=== PATIENT | female | born 1995 | race Caucasian/White ===

== ENCOUNTER 2017-02-16 09:52 | Emergency (ER) | payer BC ==
[2017-02-16 11:32] VITALS: BP 116/65
--- NOTE | 2017-02-16 11:47 | UC ---
FLU HPI - HPI Summary HPI Summary: 21 female presents with complaints of fever, body aches, dry cough and sore throat that began yesterday 02/15/17. Patient denies ear pain, diarrhea, nausea and vomiting. Admits to exposure to flu, has not had flu shot. Sore throat is aggravated by swallowing. Denies chest pain, difficulty breathing and SOB. Has not taken any medications. - History of Current Complaint Chief Complaint: UCGeneralIllness Stated Complaint: FEVER/ST Time Seen by Provider: 02/16/17 11:28 Hx Obtained From: Patient Hx Last Menstrual Period: 02/13/17 ?: No Onset/Duration: Sudden Onset Severity Currently: Moderate Severity Initially: Moderate Pain Intensity: 5 Pain Scale Used: 0-10 Numeric Associated Signs & Symptoms: Positive: Fever, Myalgia, Cough, Sore Throat, Nasal Congestion - Allergy/Home Medications Allergies/Adverse Reactions: Allergies Allergy/AdvReac Type Severity Reaction Status Date / Time No Known Allergies Allergy Verified 02/16/17 11:29 PMH/Surg Hx/FS Hx/Imm Hx Endocrine History Of: Denies: Diabetes Cardiovascular History Of: Denies: Hypertension Respiratory History Of: Denies: Asthma - Surgical History Surgical History: Yes Surgery Procedure, Year, and Place: wisdom teeth extraction 2016 - Family History Known Family History: Positive: None - Social History Alcohol Use: Rare Substance Use Type: Marijuana Substance Use Comment - Amount & Last Used: 3 times daily Smoking Status (MU): Never Smoked Tobacco Amount Used/How Often: 3-4 cigarettes daily Length of Time of Smoking/Using Tobacco: 2 yrs Have You Smoked in the Last Year: No Household Exposure Type: Cigarettes - Immunization History Most Recent Influenza Vaccination: not sure Review of Systems Constitutional: Fever, Chills Skin: Negative Eyes: Negative ENT: Sore Throat, Nasal Discharge Respiratory: Cough Cardiovascular: Negative Gastrointestinal: Negative Musculoskeletal: Myalgia Neurological: Headache Psychological: Negative All Other Systems Reviewed And Are Negative: Yes Physical Exam Triage Information Reviewed: Yes Appearance: No Pain Distress, Well-Nourished, Ill-Appearing Vital Signs: Initial Vital Signs Temp 101 F 02/16/17 11:21 Pulse 112 02/16/17 11:21 Resp 20 02/16/17 11:21 BP 116/65 02/16/17 11:21 Pulse Ox 97 02/16/17 11:21 tachycardia and fever noted. (+) strep Vital Signs Reviewed: Yes Eyes: Positive: Conjunctiva Clear ENT: Positive: Hearing grossly normal, Pharyngeal erythema, Nasal congestion, Nasal drainage, TMs normal, Tonsillar swelling, Tonsillar exudate, Other: - uvula midline, airway patent no sign of epiglotitis or peritonsillar abscess. Negative: Trismus, Muffled/hoarse voice Dental: Positive: Cervical Lymphadenopathy. Negative: Percussion Tenderness @ Neck: Positive: Supple, Nontender Respiratory: Positive: Chest non-tender, Lungs clear, Normal breath sounds, No respiratory distress, No accessory muscle use Cardiovascular: Positive: RRR, No Murmur, Pulses Normal, Brisk Capillary Refill Abdomen Description: Positive: Nontender, No Organomegaly, Soft Bowel Sounds: Positive: Present Musculoskeletal: Positive: Strength Intact, ROM Intact Neurological: Positive: Alert Psychological Exam: Normal Skin Exam: Normal Flu Course/Dx - Course Course Of Treatment: strep culture obtained and positive. due to reent flu exposure, no vaccine and complaint of symptoms flu was also tested, however, was negative. Given tylenol in office for fever/pain. told to continue ibuprofen /tylenol alternating. Will be treated with antibiotics. fluids and rest. - Differential Dx/Diagnosis Differential Diagnosis/HQI/PQRI: Influenza, Pneumonia, RSV, Other Provider Diagnoses: strep pharyngitis Discharge - Discharge Plan Condition: Stable Disposition: HOME Prescriptions: Amoxicillin CAP* [Amoxicillin 500 MG CAP*] 500 mg PO Q12H #20 cap Patient Education Materials: Strep Throat (ED) Referrals: Nabil Jolly DO [Primary Care Provider] - Additional Instructions: Take prescribed antibiotic for 10 days, even if symptoms improve. Recommend taking probiotics or eating [place] yogurt in between doses to replenish normal lynn. Also recommend swishing with salt water several times daily. Continue taking Ibuprofen/Tylenol every 4-6 hours for fever and pain. Chloraseptic spray over the counter will help numb your sore throat. Follow up with primary care provider. Wash your hands frequently and do not share drinks, as this is very contagious. Drink plenty of fluids and get lots of rest. If symptoms worsen or do not improve please seek medical attention.
[2017-02-16] MEDS ORDERED: Acetaminophen TAB* 325 MG PO ONE (11:58)
== END 2017-02-16 12:15 | disposition home or self-care (01) ==
LOC: UCCORT 09:52
DX: J02.0 Streptococcal pharyngitis (principal); F17.210 Nicotine dependence, cigarettes, uncomplicated
CPT/HCPCS: 87502; 87651; 99212; A9270-GY; G0463

== ENCOUNTER 2018-09-22 16:50 | Emergency (ER) | payer BC ==
[2018-09-22 17:36] VITALS: BP 118/85
--- NOTE | 2018-09-22 18:27 | ED ---
Abdominal Pain/Female - HPI Summary HPI Summary: pt presents for evaluation of her rlq pain. it does not radiate. she takes motrin for it. it helps a little. she states she has it intermittently. she had pain with sex last month. she states that she thinks she might have problems with her ovaries. she has never had an ultrasound of her ovaries. she denies any fever, chills, n/v. - History of Current Complaint Chief Complaint: UCAbdominalPain Stated Complaint: LOWER RIGHT ABDOMINAL PAIN X 5 DAYS Hx Obtained From: Patient Hx Last Menstrual Period: 09/21/18 Onset/Duration: Gradual Onset Timing: Intermittent Episode Lasting Severity Initially: Mild Severity Currently: Mild Pain Intensity: 3 Location: Discrete At: RLQ, Other Allergies/Adverse Reactions: Allergies Allergy/AdvReac Type Severity Reaction Status Date / Time No Known Allergies Allergy Verified 09/22/18 17:36 Home Medications: Home Medications Etonogest/Eth.estradiol (Nf) [Nuvaring Vaginal Ring] 1 each VAGINAL .SEE COMMENTS 09/22/18 [History Confirmed 09/22/18] PMH/Surg Hx/FS Hx/Imm Hx Previously Healthy: Yes Endocrine/Hematology History: Denies: Hx Diabetes Cardiovascular History: Denies: Hx Hypertension Respiratory History: Denies: Hx Asthma - Surgical History Surgery Procedure, Year, and Place: WISDOM TEETH Infectious Disease History: No Infectious Disease History: Denies: Traveled Outside the [place] in Last 30 Days - Family History Known Family History: Positive: None Negative: Respiratory Disease - Social History Alcohol Use: Occasionally Substance Use Type: Reports: Marijuana Substance Use Comment - Amount & Last Used: DAILY Smoking Status (MU): Never Smoked Tobacco Type: Cigarettes Amount Used/How Often: 3-4 cigarettes daily Length of Time of Smoking/Using Tobacco: 2 yrs Have You Smoked in the Last Year: Yes Review of Systems Constitutional: Negative Eyes: Negative ENT: Negative Cardiovascular: Negative Respiratory: Negative Positive: Abdominal Pain. Negative: Vomiting, Diarrhea, Nausea Genitourinary: Negative Musculoskeletal: Negative Skin: Negative Neurological: Negative Psychological: Normal All Other Systems Reviewed And Are Negative: No Physical Exam Triage Information Reviewed: Yes Vital Signs On Initial Exam: Initial Vitals Temp Pulse Resp BP Pulse Ox 98.9 F 67 16 118/85 100 09/22/18 17:31 09/22/18 17:31 09/22/18 17:31 09/22/18 17:31 09/22/18 17:31 Vital Signs Reviewed: Yes Appearance: Positive: Well-Appearing, No Pain Distress, Well-Nourished Skin: Positive: Warm, Dry Head/Face: Positive: Normal Head/Face Inspection Eyes: Positive: Normal, EOMI, KAREN ENT: Positive: Normal ENT inspection, Hearing grossly normal, Pharynx normal Neck: Positive: Supple, Nontender Respiratory/Lung Sounds: Positive: Clear to Auscultation, Breath Sounds Present Cardiovascular: Positive: Normal, RRR Abdomen Description: Positive: Nontender, Soft Bowel Sounds: Positive: Present Musculoskeletal: Positive: Normal Neurological: Positive: Normal, Sensory/Motor Intact, Alert, Oriented to Person Place, Time, CN Intact II-III Psychiatric: Positive: Normal AVPU Assessment: Alert Diagnostics - Vital Signs Vital Signs Temp Pulse Resp BP Pulse Ox 09/22/18 17:31 98.9 F 67 16 118/85 100 - Laboratory Lab Results: Lab Results 09/22/18 09/22/18 Range/Units 17:43 17:45 POC Urine Color Yellow POC Urine Clarity Clear POC Urine pH 6.0 (5-9) POC Ur Specif [place] 1.015 (1.010-1.030) POC Urine Protein Negative (Negative) POC Ur Glucose (UA) Negative (Negative) POC Urine Ketones Negative (Negative) POC Urine Blood Trace-lysed A (Negative) POC Urine Nitrite Negative (Negative) POC Urine Bilirubin Negative (Negative) POC Urine Urobilinogen 0.2 (Negative) POC U Leukocyte Esteras Negative (Negative) POC Ur Test Negative (Negative) Lab Statement: Any lab studies that have been ordered have been reviewed, and results considered in the medical decision making process. Abdominal Pain Fem Course/Dx - Course Course Of Treatment: pt has no tenderness on exam. urine test is negative. ua shows no evidence of uti. I discussed with the patient the likelihood of her having ovarian cysts. I further discussed with her the fact that this does not appear to be appendicitis. - Diagnoses Provider Diagnoses: Abdominal pain Discharge - Sign-Out/Discharge Documenting (check all that apply): Patient Departure All imaging exams completed and their final reports reviewed: No Studies - Discharge Plan Condition: Stable Disposition: HOME Patient Education Materials: Acute Abdominal Pain (ED) Referrals: Aziza Grijalva PA [Primary Care Provider] - Additional Instructions: please follow up with your primary care physician. return if worse or any new symptoms. take tylenol and motrin for pain. Discuss with your doctor the need for an ultrasound to further evaluate your ovaries. - Billing Disposition and Condition Condition: STABLE Disposition: Home
== END 2018-09-22 18:35 | disposition home or self-care (01) ==
LOC: UCCORT 16:50
DX: R10.31 Right lower quadrant pain (principal)
CPT/HCPCS: 81003; 84702; 99211; G0463